=== PATIENT | male | born 1960 | race Caucasian/White ===

== ENCOUNTER → 2019-02-02 | Outpatient (CLI) | payer MEDICARE | LOC: LAB FS 17:24 | PROVIDERS: ATTEND Family Medicine | DX: Z51.81 Encounter for therapeutic drug level monitoring (principal); Z79.01 Long term (current) use of anticoagulants ==

== ENCOUNTER → 2019-02-03 | Outpatient (CLI) | payer MEDICARE | LOC: LAB FS 14:10 | PROVIDERS: ATTEND Internal Medicine Interventional Cardiology | DX: I50.813 Acute on chronic right heart failure (principal) ==